=== PATIENT | female | born 1985 | race Caucasian/White ===

== ENCOUNTER 2016-10-14 22:37 | Emergency (ER) | payer OTHER ==
[2016-10-14] MEDS ORDERED: methylPREDNISolone SOD SUCCI 125 MG/2 ML VIAL IV STA (23:12)
[2016-10-14] MEDS ORDERED: IPRATROPIUM-ALBUTEROL 3 ML NEB INHALATION STA (23:12)
--- NOTE | 2016-10-14 23:23 | ED ---
URI HPI - General Chief Complaint: Upper Respiratory Infection Stated Complaint: Difficulty Breathing Time Seen by Provider: 10/14/16 22:53 Source: patient, RN notes reviewed, old records reviewed Mode of arrival: ambulatory Limitations: no limitations - History of Present Illness Initial Comments: Is a 31-year-old female stating that she's had difficulty breathing for the past week. She reports she's had significant cough as well. Nonproductive. She states she's had no fever or chills. She reports that she is a smoker. She states that he's had an inhaler and had use a more frequently. She denies any recent antibiotic or steroid use. Patient states that she's never been admitted for COPD before. She denies fever, chills, headache, abdminal pain, nausea, vomiting, dysuria, hematuria, peripheral paresthesias, back pain. - Related Data Home Medications Medication Instructions Recorded Confirmed Albuterol Inhaler [Ventolin 1 - 2 puff INHALATION Q4-6H PRN 01/05/14 04/26/14 Inhaler] Dextroamphetamine/Amphetamine 10 mg PO DAILY 04/23/14 04/26/14 [Adderall Xr] Dextroamphetamine/Amphetamine 20 mg PO QAM 04/23/14 04/26/14 [Adderall Xr] Venlafaxine HCl ER [Effexor XR] 150 mg PO QAM 04/23/14 04/26/14 lamoTRIgine [LaMICtal] 100 mg PO DAILY 04/23/14 04/26/14 Previous Rx's Medication Instructions Recorded Acetaminophen-Codeine 300-30mg 2 tab PO Q6H PRN #30 tablet 04/26/14 [Tylenol w/codeine #3] Ibuprofen [Motrin] 600 mg PO Q6HR PRN #30 tab 04/26/14 Albuterol Inhaler [Ventolin Hfa 1 - 2 puff INHALATION Q6HR PRN #1 10/15/16 Inhaler] inhaler Levofloxacin [Levaquin] 750 mg PO DAILY #5 tab 10/15/16 predniSONE 50 mg PO DAILY #7 tab 10/15/16 Allergies Allergy/AdvReac Type Severity Reaction Status Date / Time No Known Allergies Allergy Verified 10/14/16 22:47 Review of Systems ROS Statement: Those systems with pertinent positive or pertinent negative responses have been documented in the HPI. ROS Other: All systems not noted in ROS Statement are negative. Past Medical History Past Medical History: Asthma Additional Past Medical History / Comment(s): seasonal allergies. Obstetric history: 4 vaginal deliveries. CARPAL TUNNEL BILATERAL WRISTS History of Any Multi-Drug Resistant Organisms: None Reported Past Surgical History: Tonsillectomy Past Anesthesia/Blood Transfusion Reactions: No Reported Reaction Past Psychological History: Depression Additional Psychological History / Comment(s): STATES MOOD DISORDER Smoking Status: Current every day smoker Past Alcohol Use History: Occasional Past Drug Use History: None Reported General Exam - General Exam Comments Initial Comments: As is a 31-year-old female. No distress. Limitations: no limitations General appearance: alert, in no apparent distress Head exam: Present: atraumatic, normocephalic, normal inspection Eye exam: Present: normal appearance, PERRL, EOMI. Absent: scleral icterus, conjunctival injection, periorbital swelling ENT exam: Present: normal exam, mucous membranes moist Neck exam: Present: normal inspection. Absent: tenderness, meningismus, lymphadenopathy Respiratory exam: Present: wheezes (bbilateral wheezing. ). Absent: normal lung sounds bilaterally, respiratory distress, rales, rhonchi, stridor Cardiovascular Exam: Present: regular rate, normal rhythm, normal heart sounds. Absent: systolic murmur, diastolic murmur, rubs, gallop, clicks GI/Abdominal exam: Present: soft, normal bowel sounds. Absent: distended, tenderness, guarding, rebound, rigid Extremities exam: Present: normal inspection, full ROM, normal capillary refill. Absent: tenderness, pedal edema, joint swelling, calf tenderness Back exam: Present: normal inspection Neurological exam: Present: alert, oriented X3, CN II-XII intact Psychiatric exam: Present: normal affect, normal mood Skin exam: Present: warm, dry, intact, normal color. Absent: rash Course Vital Signs 10/14/16 10/14/16 10/14/16 22:44 23:38 23:53 Temperature 97.3 F L Pulse Rate 79 88 88 Respiratory 23 Rate Blood Pressure 135/74 O2 Sat by Pulse 95 Oximetry 10/15/16 00:05 Temperature 97.2 F L Pulse Rate 85 Respiratory 18 Rate Blood Pressure 134/84 O2 Sat by Pulse 98 Oximetry Medical Decision Making - Medical Decision Making Is a 31-year-old female stating that she's had difficulty breathing for the past week. She reports she's had significant cough as well. Nonproductive. She states she's had no fever or chills. She reports that she is a smoker. She states that he's had an inhaler and had use a more frequently. Patient is afebrile, oxygen saturation is 95% on room air. Patient has signifiant wheezing. Patient given double Douneb treatment, she reports some relief of symptoms. Patient givne IV solumedrol. Patient CXR was read to show Right lowere lobe pneumonia. Patient will be started and discharged on levaquin and discharged with prednisone and inhaler. Patient agrees to follow up with PCP tomorrow, and given note for work. Return parameters discussed. Lab work is negative for any siginificant change. - Lab Data Result diagrams: 10/14/16 23:15 10/14/16 23:15 Lab Results 10/14/16 10/14/16 Range/Units 23:15 23:15 WBC 12.0 H (3.8-10.6) k/uL RBC 5.14 (3.80-5.40) m/uL Hgb 15.2 (11.4-16.0) gm/dL Hct 45.3 (34.0-46.0) % MCV 88.2 (80.0-100.0) fL MCH 29.6 (25.0-35.0) pg MCHC 33.6 (31.0-37.0) g/dL RDW 13.3 (11.5-15.5) % Plt Count 187 (150-450) k/uL Neutrophils % 62 % Lymphocytes % 24 % Monocytes % 6 % Eosinophils % 7 % Basophils % 0 % Neutrophils # 7.5 (1.3-7.7) k/uL Lymphocytes # 2.8 (1.0-4.8) k/uL Monocytes # 0.7 (0-1.0) k/uL Eosinophils # 0.8 H (0-0.7) k/uL Basophils # 0.1 (0-0.2) k/uL Sodium 139 (137-145) mmol/L Potassium 3.8 (3.5-5.1) mmol/L Chloride 110 H (98-107) mmol/L Carbon Dioxide 24 (22-30) mmol/L Anion Gap 5 mmol/L BUN 7 (7-17) mg/dL Creatinine 0.70 (0.52-1.04) mg/dL Est GFR (MDRD) Af Amer >60 (>60 ml/min/1.73 sqM) Est GFR (MDRD) Non-Af >60 (>60 ml/min/1.73 sqM) Glucose 106 H (74-99) mg/dL Calcium 8.6 (8.4-10.2) mg/dL - Radiology Data Radiology results: report reviewed Right lower lobe pneumonia. Disposition Clinical Impression: Pneumonia Disposition: HOME SELF-CARE Condition: Good Instructions: Pneumonia (ED), How to Stop Smoking (ED) Additional Instructions: Patient is to rest, increase fluids. Patient is to follow-up with primary care provider tomorrow. Continue use inhaler and complete all the antibiotic prescriptions. Return to the emergency department if any alarming signs or symptoms occur. Prescriptions: Albuterol Inhaler [Ventolin Hfa Inhaler] 1 - 2 puff INHALATION Q6HR PRN #1 inhaler PRN Reason: Shortness Of Breath Levofloxacin [Levaquin] 750 mg PO DAILY #5 tab predniSONE 50 mg PO DAILY #7 tab Referrals: Agnes Deleon DO [Primary Care Provider] - 1-2 days Time of Disposition: 00:24
[2016-10-14 23:33] LABS: Basophils # (A) 0.1 k/uL (0-0.2); Basophils % (A) 0 %; CH 29.8; Eosinophils # (A) 0.8 k/uL (0-0.7); Eosinophils % (A) 7 %; HCT 45.3 % (34.0-46.0); HDW 2.47; HGB 15.2 gm/dL (11.4-16.0); Luc % (Auto) 2; Lymphocytes # (A) 2.8 k/uL (1.0-4.8); Lymphocytes % (A) 24 %; MCH 29.6 pg (25.0-35.0); MCHC 33.6 g/dL (31.0-37.0); MCV 88.2 fL (80.0-100.0); Mean Platelet Volume 7.4; Monocytes # (A) 0.7 k/uL (0-1.0); Monocytes % (A) 6 %; Neutrophils # (A) 7.5 k/uL (1.3-7.7); Neutrophils % (A) 62 %; RBC 5.14 m/uL (3.80-5.40); RDW 13.3 % (11.5-15.5); WBC (Perox) 11.54
[2016-10-14 23:50] LABS: Anion Gap 5 mmol/L; Blood Urea Nitrogen 7 mg/dL (7-17); Calcium 8.6 mg/dL (8.4-10.2); Carbon Dioxide 24 mmol/L (22-30); Chloride 110 mmol/L (98-107); Glucose 106 mg/dL (74-99); Non-African American GFR(MDRD) >60 (>60 ml/min/1.73 sqM); Potassium 3.8 mmol/L (3.5-5.1); Sodium 139 mmol/L (137-145)
--- NOTE | 2016-10-15 00:01 | XR ---
EXAM: XR Chest, 2 Views CLINICAL HISTORY: Shortness of breath TECHNIQUE: Frontal and lateral views of the chest. COMPARISON: No relevant prior studies available. FINDINGS: Lungs: Patchy consolidation seen within the right lower lung, best visualized on lateral view. Pleural space: Unremarkable. No pneumothorax. Heart: Unremarkable. No cardiomegaly. Mediastinum: Unremarkable. Bones/joints: Unremarkable. IMPRESSION: Right lower lobe pneumonia.
[2016-10-15 00:06] VITALS: BP 134/84; PULSE 85; RESP 18; TEMP 97.2
[2016-10-15] MEDS ORDERED: LEVOFLOXACIN 500 MG TAB PO STA (00:22)
[2016-10-15] MEDS ORDERED: LEVOFLOXACIN 250 MG TAB PO STA (00:22)
== END 2016-10-15 01:00 | disposition home or self-care (01) ==
LOC: EC 22:37
DX: J18.9 Pneumonia, unspecified organism (principal); F32.9 Major depressive disorder, single episode, unspecified; F39 Unspecified mood [affective] disorder; F17.200 Nicotine dependence, unspecified, uncomplicated; Z79.899 Other long term (current) drug therapy
CPT/HCPCS: 36415; 94640; 80048; 85025; 71020; 99284; 96374; J2930